=== PATIENT | female | born 1955 | race Caucasian/White ===

== ENCOUNTER 2017-03-13 08:04 | Emergency (ER) | payer SELFPAY ==
[~2017-03-13] VITALS: Ht 154.9 cm; Wt 66.5 kg
[~2017-03-13 08:04] MED LIST: HYDR25TA11 PO; HYOS0.128 SL; IBUP800T PO; KETO10TA PO; LISI-170 PO; METO10TA82 PO; METO50TA82 PO; OMEP-110 PO; PROC10TA78 PO; SIMV20TA PO; TRAM50TA2 PO
[2017-03-13] MEDS ORDERED: MORPHINE SULFATE 4 MG/ML, 1ML ONE ×2 (08:50→10:02)
[2017-03-13] MEDS ORDERED: PROMETHAZINE 25 MG/ML, 1ML ONE (08:50)
[2017-03-13] MEDS ORDERED: PROMETHAZINE 25 MG/ML, 1ML IM ONE (09:00)
[2017-03-13] MEDS ORDERED: SODIUM CHLORIDE FLUSH 10ML SYR IVF ONE (09:00)
[2017-03-13] MEDS ORDERED: SODIUM CHLORIDE 0.9% 1,000ML IVBOLUS ONE (09:00)
[2017-03-13] MEDS: MORPHINE SULFATE 4 MG/ML, 1ML IVPush PRN ×2 (09:08→10:31)
[2017-03-13 09:47] LABS: BLOOD UREA NITROGEN 14 mg/dL (7-18)
[2017-03-13 09:53] LABS: ASPARTATE AMINO TRANSFERASE 35 U/L (15-37)
[2017-03-13 09:55] LABS: IS PT STATUS REG ER OR PRE ER? YES
[2017-03-13 11:41] VITALS: BP 184/74
== END 2017-03-13 11:45 | disposition home or self-care (01) ==
LOC: ED 10:08
DX: R10.13 Epigastric pain (principal); G43.A0 Cyclical vomiting, in migraine, not intractable; I25.2 Old myocardial infarction; I10 Essential (primary) hypertension; Z88.1 Allergy status to other antibiotic agents; Z88.5 Allergy status to narcotic agent
CPT/HCPCS: 36415; 76700; 80053; 83690; 84484; 85025; 93005; 96361; 96372; 96374; 96376; J2550; J7030

== ENCOUNTER 2019-08-01 06:31 | Emergency (ER) | payer SELFPAY ==
[~2019-08-01] VITALS: Ht 157.5 cm; Wt 70.0 kg
[~2019-08-01 06:31] MED LIST changes: +HYDR-826 PO; -HYDR25TA11 PO; -HYOS0.128 SL; +HYOS0.1281 SL; +IBUP-1223 PO; -IBUP800T PO
[2019-08-01] MEDS ORDERED: IBUPROFEN 600 MG TABLET ONE (07:22)
[2019-08-01] MEDS ORDERED: ACETAMINOPHEN 325 MG TABLET ONE (07:22)
[2019-08-01] MEDS ORDERED: ACETAMINOPHEN 325 MG TABLET PO ONE (07:30)
[2019-08-01] MEDS ORDERED: IBUPROFEN 600 MG TABLET PO ONE (07:30)
[2019-08-01 07:41] VITALS: BP 138/62
== END 2019-08-01 08:25 ==
LOC: ED 08:19
DX: H66.003 Acute suppurative otitis media without spontaneous rupture of ear drum, bilateral (principal); I10 Essential (primary) hypertension; I25.2 Old myocardial infarction; Z88.5 Allergy status to narcotic agent; Z88.8 Allergy status to other drugs, medicaments and biological substances
CPT/HCPCS: 71046; 93005; 99283

== ENCOUNTER 2021-04-19 19:39 | Emergency (ER) | payer OTHER ==
[~2021-04-19] VITALS: Ht 154.9 cm; Wt 67.8 kg
[2021-04-19 19:40] VITALS: BP 183/97
--- NOTE | 2021-04-19 20:02 | NUR ---
PT AMBULATED TO ROOM, AND HAS SMALL LAC TO RIGHT ELBOW, BLEEDING CONTROLLED. MD TO BEDSIDE TO EVAL PT.
[2021-04-19] MEDS ORDERED: DIPH,PERTUSS(ACELL),TET VAC/PF 0.5 ML IM-VACC ONE ×3 (20:14→21:32)
[2021-04-19] MEDS ORDERED: LIDOCAINE-MPF 1%, 5ML ONE (20:14)
[2021-04-19] MEDS ORDERED: LIDOCAINE 1%, 10ML INFIL ONE (20:30)
--- NOTE | 2021-04-19 20:43 | NUR ---
PA AND PA STUDENT TO BEDSIDE TO CLOSE LAC WITH SUTURES. PT TOLERATING WELL.
--- NOTE | 2021-04-19 21:11 | NUR ---
PTS LAC CLOSED, EDGES WELL APPROXIMATED, AND CLOSED, AND NO ACTIVE BLEEDING NOTED. 6 SUTURES USED TO CLOSE WOUND BY PA. PT TOLERATED WELL. TO BE DISCHARGED.
--- NOTE | 2021-04-19 21:56 | NUR ---
F/U AND D/C INSTRUCTIONS GIVEN TO PT AND SHE V/U. PT GIVEN TETANUS SHOT ON RIGHT DELTOID AND TOLERATED WELL. PT AMBULATED TO DISCHARGE.
== END 2021-04-19 22:26 ==
LOC: ED 21:44
DX: S51.011A Laceration without foreign body of right elbow, initial encounter (principal); Z87.891 Personal history of nicotine dependence; I10 Essential (primary) hypertension; I25.2 Old myocardial infarction; W01.10XA Fall on same level from slipping, tripping and stumbling with subsequent striking against unspecified object, initial encounter; Y93.01 Activity, walking, marching and hiking; Y92.89 Other specified places as the place of occurrence of the external cause; Y99.8 Other external cause status
CPT/HCPCS: 12002; 90471; 90715; 99283; J3490

== ENCOUNTER 2021-05-01 13:57 | Emergency (ER) | payer OTHER ==
[~2021-05-01] VITALS: Ht 154.9 cm; Wt 67.9 kg
[2021-05-01 14:00] VITALS: BP 136/79
== END 2021-05-01 14:27 | disposition home or self-care (01) ==
LOC: ED 14:10
DX: S51.011D Laceration without foreign body of right elbow, subsequent encounter (principal); I10 Essential (primary) hypertension; I25.2 Old myocardial infarction; R11.15 Cyclical vomiting syndrome unrelated to migraine; X58.XXXD Exposure to other specified factors, subsequent encounter
CPT/HCPCS: 99281